=== PATIENT | female | born 1935 | race Caucasian/White ===

== ENCOUNTER → 2017-01-11 | Day surgery (SDC) | payer MEDICARE, MEDICAID ==
--- NOTE | 2017-01-07 11:03 | Pre-Procedure Note/Attestation ---
Pre-Procedure Note/Attestation Complete Prior to Procedure Planned Procedure: right Procedure Narrative: 1.CATARACT EXTRACTION WITH PHACO AND PC IOL IMPLANTATION, RIGHT EYE. Indications for Procedure Pre-Operative Diagnosis: 1. CATARACT, RIGHT EYE. Attestation I attest that I discussed the nature of the procedure; its benefits; risks and complications; and alternatives (and the risks and benefits of such alternatives ), prior to the procedure, with the patient (or the patient's legal special service representative). I attest that, if there was a reasonable possibility of needing a blood transfusion, the patient (or the patient's legal special service representative) was given the [facility] standardized written summary, pursuant to the Saad Nena Blood Safety Act ([place] Health and Safety Code # 1645, as amended). I attest that I re-evaluated the patient just prior to the surgery and that there has been no change in the patient's H&P, except as documented below: LOUISE LANTIGUA Jan 07, 2017 11:03
[~2017-01-11] VITALS: Ht 121.9 cm; Wt 36.3 kg
[2017-01-11] VITALS (8 sets, daily range): BP systolic 126–167; BP diastolic 69–83
[~2017-01-11] MED LIST: Akten 3.5% 1ml Btl ONE; BSS 15ml BTL ONE; BSS 500ml btl ONE; CRESTOR10 M2 ORAL; Dexamethasone 4mg/ml vial ONE; Diclofenac Sod 0.1% Op Soln ONE; DiphenhydrAMINE 50mg/ml Inj IVP PRN; EPINEPHrine 1mg/1ml Amp ONE; Gatifloxacin Opth Solution 0.5% ONE; LR 1000ml 1,000 ML IVLG SCH; LR 1000ml ONE; Labetalol 5mg/ml 20ml vial IV PRN; Lidocaine 1% MPF 10mg/ml 5ml ONE; NKM; NS Irrig 1000ml ONE; Phenylephrine 10% Opth Soln 5ml ONE; Povidone-Iodine 5% opth solution ONE; Sodium Hyaluronate 10 mg/ml 0.85ml ONE; Sterile Water Irrig 1000ml IRRIG ONE; Tropicamide 1% Opth Soln ONE; acetaZOLAMIDE 125mg tab ORAL ONE; fentaNYL 100 mcg/2 mL IV ONE
[2017-01-11] MEDS: Phenylephrine 10% Opth Soln 5ml RIGHT EYE SCH ×3 (07:01→07:23)
[2017-01-11] MEDS: Tropicamide 1% Opth Soln RIGHT EYE SCH ×3 (07:02→07:24)
[2017-01-11] MEDS: Diclofenac Sod 0.1% Op Soln RIGHT EYE SCH ×3 (07:03→07:25)
[2017-01-11] MEDS: Gatifloxacin Opth Solution 0.5% RIGHT EYE SCH ×3 (07:04→07:24)
[2017-01-11] MEDS: Akten 3.5% 1ml Btl RIGHT EYE SCH ×3 (07:05→07:25)
--- NOTE | 2017-01-11 07:33 | Anethesia Preoperative Eval ---
Anesthesia Pre-op PMH/ROS General Date of Evaluation: Jan 11, 2017 Anesthesiologist: José Antonio ASA Score: ASA 2 Mallampati Score Class I : Soft palate, uvula, fauces, pillars visible Class II: Soft palate, uvula, fauces visible Class III: Soft palate, base of uvula visible Class IV: Only hard plate visible Mallampati Classification: Class II Surgeon: Pio Diagnosis: Right cataract Surgical Procedure: Right cataract extraction with IOL Anesthesia History: none Family History: no anesthesia problems Allergies: Coded Allergies: No Known Allergies (Unverified , 08/01/15) Medications: see eMAR Past Medical History Cardiovascular: Reports: HTN, other - HLD, Denies: CAD, [place], arrhythmia, valve dz Pulmonary: Reports: asthma, Denies: COPD, JOURDAN, other Gastrointestinal/Genitourinary: Reports: GERD, Denies: CRI, ESRD, other Neurologic/Psychiatric: Denies: CVA, TIA, dementia, depression/anxiety, other Endocrine: Denies: DM, hypothyroidism, other, steroids HEENT: Reports: cataract (R), Denies: QAWALANGIN (L), QAWALANGIN (R), cataract (L), glaucoma, other Hematology/Immune: Denies: DVT, anemia, bleeding disorder, other Musculoskeletal/Integumentary: Reports: OA, 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 Exam Physician Exam Last Vital Signs Date Time Temp Pulse Resp B/P Pulse Ox O2 Delivery O2 Flow Rate FiO2 01/11/17 07:19 97.8 71 18 167/77 99 Room Air Constitutional: NAD Cardiovascular: RRR Respiratory: CTA Airway Exam Mallampati Score: Class II Anesthesia Pre-op A/P Labs see chart Studies Pre-op Studies: EKG - sr Risk Assessment & Plan Assessment: ASA II Plan: MAC Pre-Antibiotics Drug: N/A MARILY GUADARRAMA M.D. Jan 11, 2017 07:33
--- NOTE | 2017-01-11 07:36 | Immediate Post-Op Evaluation ---
Immediate Post-Op Evalulation Immediate Post-Op Evalulation Procedure: Right cataract extraction with IOL Date of Evaluation: Jan 11, 2017 Time of Evaluation: 09:03 IV Fluids: 300 Blood Products: 0 Estimated Blood Loss: 0 Urinary Output: 0 Blood Pressure Systolic: 145 Blood Pressure Diastolic: 83 Pulse Rate: 70 Respiratory Rate: 16 O2 Sat by Pulse Oximetry: 99 Temperature (Fahrenheit): 97.6 Pain Score (1-10): 0 Nausea: No Vomiting: No Complications 0 Patient Status: awake, reacts, patent, none Hydration Status: adequate Drug: N/A MARILY GUADARRAMA M.D. Jan 11, 2017 07:36
--- NOTE | 2017-01-11 07:37 | 48 Hour Post Anesthesia Eval ---
Post Anesthesia Evaluation Procedure: Right cataract extraction with IOL Date of Evaluation: Jan 11, 2017 Blood Pressure Systolic: 148 0: 86 Pulse Rate: 68 Respiratory Rate: 16 O2 Sat by Pulse Oximetry: 99 Airway: patent Nausea: No Vomiting: No Pain Intensity: 0 Hydration Status: adequate Cardiopulmonary Status: at baseline Mental Status/LOC: patient returned to baseline Post-Anesthesia Complications: 0 Follow-up care needed: ready to discharge MARILY GUADARRAMA M.D. Jan 11, 2017 07:37
--- NOTE | 2017-01-11 09:03 | Brief Operative Note ---
Immediate Post Operative Note Operative Note Chief Complaint: Blurry vision, right eye. Difficulty watching TV and reading Pre-op Diagnosis: 1. CATARACT, RIGHT EYE. Procedure: Cataract extraction with phaco and PC IOL implantation, right eye Post-op Diagnosis: same as pre-op Surgeon: Louise Suero MD. Cpr Ambulance Driver: None Additional Surgeons: None Anesthesiologist: Dr. Chou Anesthesia: MAC Specimen: none Complications: none Condition: stable Estimated Blood Loss: none Drains: none Implant(s) used?: Yes - Monofocal PC IOL implanted in the right eye without complications LOUISE SUERO Jan 11, 2017 09:02
--- NOTE | 2017-01-11 19:44 | Discharge Summary ---
Discharge Summary Discharge Summary Discharge Summary DATE OF ADMISSION:01/11/2017 DATE OF DISCHARGE:01/11/2017 REASON FOR HOSPITALIZATION:1-Cataract right eye 2- Keratoconus SURGERY PERFORMED: Cataract extraction with phaco and PC IOL implantation, right eye CONDITION IN THE HOSPITAL:The patient tolerated the surgery without complications. DISCHARGE CONDITION: The patient was stable at discharge. DISCHARGE MEDICATIONS: 1. Vigamox eye drops one drop q.i.d, 2. Prednisolone one drop q.i.d, 3. Ilevro one drop qd POSTOPERATIVE ORDERS: The patient has to rest at home. No bending, No lifting, No watching Television tonight. POSTOPERATIVE FOLLOW UP: The patient will be followed in my office tomorrow morning at 7 o'clock. LOUISE LANTIGUA Jan 11, 2017 19:44
--- NOTE | 2017-01-11 20:01 | Operative Note - PDOC ---
Operative Note Operative Note Operative Report DATE OF OPERATION: 01/11/2017 FACILITY: [facility] SURGEON: Steve Suero DRAINAGE DESIGN COORDINATOR: None ANESTHESIOLOGIST: Dr. Cornelius ANESTHESIA: Monitored anesthesia care (MAC) PREOPERATIVE DIAGNOSES: 1. Cataract, right eye. 2. Astigmatism, right eye. POSTOPERATIVE DIAGNOSES: 1. Cataract, right eye. 2. Astigmatism, right eye. SURGERY PERFORMED: 1. Cataract extraction with phacoemulsification and posterior chamber intraocular lens implantation in the right eye. 2. Limbal relaxing incision (I.R.I) right eye. INDICATION FOR SURGERY: The patient is an 81-year-old woman with history of high blood pressure hyperlipidemia, osteopenia and memory loss..She had cataract surgery in the left eye08/05/2015. 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 She doesn't smoke doesn't drink and no allergy to medications. She is complaining of blurry vision in the right eye. On examination of the right eye., the cornea is clear. anterior chamber is clean and quiet, but is shallow. The pupillary reflex is normal. There is no RAPD. There is 4 nuclear sclerosis and 2 cortical cataract. The fundus shows normal optic disc, normal macula, and periphery retina is flat. To improve her vision in the left eye, the cataract has to be removed and posterior chamber intraocular lens has to be implanted. INFORMED CONSENT: The nature of the surgery, risks benefits, alternatives, and potential complications were explained all in detail to the patient. The potential complications including. But not limited to bleeding, infection, posterior capsular rupture,lens subluxation, flat anterior chamber,iris prolapse , uveitis, corneal edema, macular edema, endophthalmitis, retinal detachment, loss of vision and even loss of the eye were all explained in detail to the patient. The patient voiced understanding and accepted all the complications.The alternatives including accommodating lens, multifocal lens, toric lens, and conventional cataract surgery with limbal relaxing incision (LRI ) for treatment of astigmatism were all explained in detail to the patient who voiced understanding. The patient elected to have cataract surgery with insertion of the monofocal lens and limbal relaxing incision for astigmatism. Then, she signed the consent from,which is in the chart. DESCRIPTION OF SURGERY AND FINDINGS: Following hat, the patient was taken to the operation room in a stable condition. Lidocaine gel Akten 3.5% were applied to the conjuctiva of the right eye. Anesthesia was given by the anesthesiologist , Dr. Cornelius. After adequate anesthesia and sedation had been achieved, the left eye was prepped and draped in the usual and sterile fashion for intraocular surgery.Following that, a speculum was placed in the left eye. Following that, before the patient was taken to the operation room, the 180 and 90 meridian of the cornea was marked. In the operation room, using a corneal marker and marking pen, the steep meridian of the cornea was marked. Following that, using a zoe knife, two parallel incisions was placed on the steep meridian of the cornea to treat the patients astigmatism. Following that, using a super sharp knife, a clear corneal side port was created. Following that 1% lidocaine without preservative (MPF) was injected into the anterior chamber.Viscoelastic agent Healon was injected into the anterior chamber. Following that, a clear corneal temporal keratotomy was performed with a 2.8 mm keratome. Following that, viscoelastic agent was injected into the anterior chamber again. Following that, Vision blue was injected under the viscoelastic agent to stain the anterior capsule. Following that, a clear fresh viscoelastic agent was injected into the anterior chamber again. Under the viscoelastic agent , an anterior capsulotomy was performed in the fashion of capsulorrhexis beautifully. Following that viscoelastic agent was removed from the anterior chamber. Following that, using a balanced salt solution hydrodissection and hydrodelineation was performed and the nucleus was freed. Following that, the viscoelastic agent was injected into the anterior chamber again to protect the endothelium of the cornea. Following that, using phacoemulsification machine inthe fashion of horizontal chop, the nucleus was removed in toto. Following that, the cortical material was removed from the capsular bag with irrigation aspiration unit and the capsular bag was polished.Following that, the capsular bag was filled with viscoelastic agent. Following that, a+22.50 diopter , [id number] foldable PCIOL was injected into the capsular bag. Using a Sinskey hook, the lens was manipulated within the proper position.Following that, viscoelastic agent was removed from the anterior and posterior part of the lens.The anterior chamber was filled with balanced salt solution. Following that, the wound was hydrated with balanced salt solution and the wound was checked for leakage. There was no leakage. Following that, the wound was hydrated and the wound was checked for leakage. There was no leakage. Following that, Vigamox eye drops were applied to the conjunctiva of the right eye. The patient tolerated the surgery without complications. At the end of the surgery, the eye was patched with a clear sterile fenestrated shield. Following that, the patient was transferred to the recovery room. In the recovery room, 125mg Diamox was given by mouth stat. Postoperative orders and directions were given to the patient. The patient will be discharged home upon stabilization. The patient will be followed in my office tomorrow morning at 7 o 'clock. MD RHINA Hernandez JOHN Jan 11, 2017 20:01
== END | disposition home or self-care (01) ==
LOC: SUR 06:23
DX: H25.11 Age-related nuclear cataract, right eye (principal); H25.011 Cortical age-related cataract, right eye; H52.201 Unspecified astigmatism, right eye; I10 Essential (primary) hypertension; K21.9 Gastro-esophageal reflux disease without esophagitis; E78.5 Hyperlipidemia, unspecified; J45.909 Unspecified asthma, uncomplicated; M19.90 Unspecified osteoarthritis, unspecified site; M85.80 Other specified disorders of bone density and structure, unspecified site; R41.3 Other amnesia
CPT/HCPCS: 66984; 66999; J0171; J1100; J1200; J3010; J7120; V2632; 94003; 94150